=== PATIENT | male | born 1990 | race Hispanic/Latino ===

== ENCOUNTER → 2024-04-25 07:26 | Outpatient (REF) | payer OTHER, SELFPAY ==
[2024-04-25 10:33] LABS: Glycohemoglobin (HgbA1c) 5.7 % (4.0-5.6)
== END ==
LOC: REG 07:26
PROVIDERS: ATTENDING PHYSICIAN Internal Medicine
DX: R73.03 Prediabetes (principal)
CPT/HCPCS: 36415; 83036

== ENCOUNTER → 2024-12-02 16:33 | Outpatient (REF) | payer OTHER, SELFPAY | LOC: RAD 16:33 | PROVIDERS: ATTENDING PHYSICIAN Nurse Practitioner Adult Health | DX: M25.551 Pain in right hip (principal) | CPT/HCPCS: 73502 ==